=== PATIENT | female | born 1980 | race Caucasian/White ===

== ENCOUNTER 2019-12-19 09:04 | Emergency (ER) | payer OTHER, SELFPAY ==
--- NOTE | 2019-12-19 09:10 | ED.GENADULT ---
HPI - General Adult General Chief complaint: Upper Respiratory Infection Stated complaint: cough/chest congestion Time Seen by Provider: 12/19/19 09:24 Source: patient Mode of arrival: ambulatory Limitations: no limitations History of Present Illness HPI narrative: 39-year-old female patient presents the [facility] care with complaints of cold symptoms flulike symptoms for the past 3 days. Patient states he started with a cough and on day 2 she started having fevers, body aches and chills. Patient states that she does have a little bit of chest pain when she coughs but denies any shortness of breath. Patient states that she did get a flu shot this year. Patient states that she has been taking [id number] ibuprofen for her symptoms. Related Data Allergies Allergy/AdvReac Type Severity Reaction Status Date / Time No Known Allergies Allergy Unverified 12/19/19 09:12 Review of Systems Review of Systems: Narrative: CONSTITUTIONAL: Positive fever, body aches and chills, denies sweats. EYES: Denies visual changes, redness, or discharge. ENT: Positive rhinorrhea, congestion, sore throat, denies otalgia. CARDIOVASCULAR: Positive chest pain with cough, denies palpitations, or edema. RESPIRATORY: Positive nonproductive cough, denies dyspnea. GASTROINTESTINAL: Denies abdominal pain, nausea, vomiting, or diarrhea. GENITOURINARY: Denies dysuria or hematuria. SKIN: Denies rash or itching. MUSCULOSKELETAL: Denies back pain, joint pain, or myalgia. NEUROLOGIC: Denies headache, numbness, or weakness. PSYCHIATRIC: Denies anxiety or depression. [facility] Family History Family History Grandparent Depression Cerebrovascular accident Family history of heart disease in male family member before age 55 Diabetes mellitus Mother Hypertension Social History Social History Smoking status: Never smoker Alcohol intake: current Comments At the time of my signature I agree with nursing past medical history, surgical, social, and family history. There is no relevant family history pertinent to the presenting complaint. Exam Narrative: Exam Narrative: GENERAL: ill-appearing, well-nourished, and in no acute distress. HEAD: Normocephalic, atraumatic. No tenderness noted to frontal maxillary sinuses on palpation. EYES: PERRLA and EOMI. ENT: Nares with erythema or edema noted, no rhinorrhea or epistaxis. Mucous membranes moist. Posterior pharynx with slight erythema but no tonsillar large but no exudates or lesions present. Bilateral TMs are clear no erythema or foreign bodies in the canal. NECK: Supple. No lymphadenopathy CHEST: Clear to auscultation. No respiratory distress. HEART: Regular rate and rhythm. No murmur heard. Normal peripheral pulses. ABDOMEN: Soft, nontender, nondistended, normal active bowel sounds. EXTREMITIES: Normal range of motion. No edema. SKIN: Warm, dry, no rash. NEURO: No focal deficits. Alert and oriented x3. Course Vital Signs Vital signs: Vital Signs Temperature 36.8 C 12/19/19 09:13 Pulse Rate 91 12/19/19 09:13 Respiratory Rate 20 12/19/19 09:13 Blood Pressure 113/82 12/19/19 09:13 Pulse Oximetry 100 12/19/19 09:13 Temperature 36.8 C 12/19/19 09:13 Pulse Rate 91 12/19/19 09:18 Respiratory Rate 20 12/19/19 09:18 Blood Pressure 113/82 12/19/19 09:13 Pulse Oximetry 100 12/19/19 09:18 Vital signs reviewed. Medical Decision Making Differential Diagnosis Differential Diagnosis: Differential diagnosis: Allergic rhinitis, chronic sinusitis, tonsillitis, acute sinusitis, infectious mononucleosis, seasonal influenza, pertussis, diphtheria, meningococcal disease, viral syndrome, viral bronchitis, RSV. Notify patient she is positive today for influenza A. Discussed with her that since her symptoms started 3 days ago she is outside of the window for antivirals but I can go a
[2019-12-19 09:13] VITALS: BP 113/82; PULSE 91; RESP 20; TEMP 36.8; O2SAT 100
[2019-12-19 09:18] VITALS: PULSE 91; RESP 20; O2SAT 100
== END 2019-12-19 09:30 | disposition home or self-care (01) ==
PROVIDERS: Emergency Provider Nurse Practitioner Family; PCP Physician Assistant
DX: J10.1 Influenza due to other identified influenza virus with other respiratory manifestations (principal)
CPT/HCPCS: 87804; 99213; G0463